=== PATIENT | male | born 2000 | race Caucasian/White ===

== ENCOUNTER 2021-03-24 02:31 | Emergency (ER) | payer OTHER ==
[2021-03-24 03:40] VITALS: BP 119/84; PULSE 85; TEMP 98.2
== END 2021-03-24 03:40 | disposition home or self-care (01) ==
LOC: COL.ER 02:31
DX: S01.81XA Laceration without foreign body of other part of head, initial encounter (principal); S01.21XA Laceration without foreign body of nose, initial encounter; S01.111A Laceration without foreign body of right eyelid and periocular area, initial encounter; W50.0XXA Accidental hit or strike by another person, initial encounter; Y99.0 Civilian activity done for income or pay